=== PATIENT | male | born 1990 | race Caucasian/White ===

== ENCOUNTER 2021-07-03 17:55 | Inpatient (IN) | payer OTHER, BC ==
[~2021-07-03] VITALS: Ht 177.8 cm; Wt 57.7 kg
[~2021-07-03 17:55] MED LIST: ASACOL HD800 MG PO; AUGMENTIN 875875 MG OR; BELLADONNA ALK/1 TA1 PO; BENTYL20 MG PO; BUSPAR PO; CANASA1000 MG RC; CANASA1000 MG RE; CELEXA 20 MG TA20 M1; CELEXA 20 MG TA20 M1 PO; COLOCORT100 MG/60; COUMADIN 2 MG TA2 M1; COUMADIN 3 MG TA3 MG PO; COUMADIN 4 MG TA4 M1 PO; COUMADIN 5 MG TA5 M1 PO; DEPAKOTE ER500 MG; DIAZEPAM 5 MG5 M1; DIAZEPAM 5 MG5 M1 PO; DILAUDID 4 MG TA4 M1 PO; DILAUDID2 M1 PO; DOXEPIN 10 MG C10 MG PO; DOXEPIN 25 MG C25 M1 PO; FENTANYL PA50 MCG/HR TP; FLAGYL PO; HYOSCYAMINE PO; IMURAN 50MG TAB50 M1 PO; IRON325 PO; LEVSIN PO; MS CONTIN15 MG PO; MS CONTIN30 MG PO; NICOTINE TRANSD14 M1 TD; NICOTINE TRANSD21 M1; NICOTINE TRANSD21 M1 TD; OXYIR5 MG PO; PERCOCET 10-651 EACH PO; PHENERGAN 25 MG25 M1 PO; PHENERGAN 25 MG25 MG PO; PREVACID 30MG C30 M1 PO; PROCTOFOAM-HC F10 GM RC; PROMETHAZINE PO; PROTONIX40 M2 PO; REMICADE 1100 MG/VIA; VANCOMYCIN; XANAX XR1 MG PO; [UNRECOGNIZED DRUG - OTHER] PO
[2021-07-03 18:03] VITALS: BP 129/84
[2021-07-03] MEDS ORDERED: SUBOXONE 8 MG-1 EAC3 SUBLING (18:08)
[2021-07-03 18:59] LABS: ABSOLUTE NEUTROPHILS 6.1 thou/uL (1.4-8.2); BASOPHILS 0.4 % (0.0-2.0); EOSINOPHILS 1.9 % (0.0-3.0); HEMATOCRIT 45.1 % (42.0-52.0); HEMOGLOBIN 15.3 gm/dL (14.0-18.0); MCV 91.3 fL (80.0-100.0); MONOCYTES 4.8 % (1.0-8.0); PLATELET COUNT 233 thou/uL (150-400); POLYS 73.9 % (36.0-66.0); RBC 4.94 mil/uL (4.50-6.00); RDW 13.9 % (10.5-14.5); WBC 8.3 thou/uL (4.0-11.0)
[2021-07-03 19:07] LABS: CALCIUM 9.8 mg/dL (8.5-10.1); CREATININE 1.1 mg/dL (0.7-1.3)
[2021-07-03 19:22] LABS: ALBUMIN 4.5 g/dL (3.4-5.0); TOTAL BILIRUBIN 0.4 mg/dL (0.2-1.0); TOTAL PROTEIN 8.3 g/dL (6.4-8.2)
[2021-07-04 00:59] VITALS: BP 107/62
[2021-07-04 01:40] VITALS: BP 106/67
[2021-07-04] MEDS ORDERED: ZOFRAN ODT4 MG PO (01:40)
[2021-07-04] MEDS ORDERED: PROTONIX40 M2 PO (01:41)
[2021-07-04] MEDS ORDERED: NEURONTIN 400M400 M2 PO (01:41)
[2021-07-04] MEDS ORDERED: LIDOCAINE HCL1 EACH TRANSDERM (01:42)
[2021-07-04] MEDS ORDERED: SEROQUEL 100 M100 M1 PO (01:43)
[2021-07-04] MEDS ORDERED: GAS-X62.5 MG PO (01:43)
[2021-07-04] MEDS ORDERED: DICYCLOMINE HCL20 MG PO (01:44)
[2021-07-04] MEDS ORDERED: ZANAFLEX2 M1 PO (01:44)
[2021-07-04] MEDS ORDERED: DILAUDID 4 MG TA4 M1 PO (01:46)
[2021-07-04] MEDS ORDERED: BENADRYL25 MG PO (01:56)
[2021-07-04] MEDS ORDERED: VITAMIN D21250 MCG PO (02:01)
[2021-07-04] MEDS ORDERED: CARAFATE1 GM PO (02:01)
[2021-07-04 07:29] VITALS: BP 94/67
[2021-07-04 08:23] VITALS: BP 112/80
[2021-07-04 09:32] LABS: CALCIUM 8.6 mg/dL (8.5-10.1); POTASSIUM 4.2 mmol/L (3.5-5.1)
[2021-07-04] MEDS ORDERED: QUETIAPINE FUMA25 MG PO (11:35)
[2021-07-04] MEDS ORDERED: HYDROXYZINE HCL25 M2 PO (11:36)
[2021-07-04] MEDS ORDERED: IBU600 MG PO (11:37)
--- NOTE | 2021-07-04 16:08 | NUR ---
ASSUMED CARE OF PT XFER FROM ER AT 0805. PT C/O SEVERE ABD PAIN AND CRAMPING. PT HAS CHOLOSTOMY AND HAS HX OF CHRONIC UC. PT HAS BEEN IN PAIN THROUGHOUT THE MORNING AND HAS HAD NEW MEDS ADDED AND IS NOW FEELING BETTER. ASSESSMENTS NOTE IN CHART AND OTHERWISE UNREMARKABLE. MAINTAINING WARM PACKS AND POSITIONING TO RELIEVE PN. IV IN LT FA WITH NS AT 126ML/HR. PT IS AMBULATORY WITH SB ASST. MEDS AND TX GIVEN NEEDED AND SCHEDULED. CALL LIGHT AND OTHER NEEDS WITHIN REACH. WILL MONITOR AND NOTE ANY CHANGES.
[2021-07-04 17:15] VITALS: BP 119/88
[2021-07-04 19:55] VITALS: BP 188/82
--- NOTE | 2021-07-05 02:57 | NUR ---
ASSUMED PT CARE AT 1900. PT IS ALERT AND ORIENTED X4. PT C/O ITCHING AND WAS NOT SURE WHAT TRIGGERED IT.PT TAKES BENADRYL AT HOME FOR THAT. 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 PT C/O PAIN,N/V THROUGHOUT THE SHIFT WHICH MANAGED BY PRN MEDS. VS ARE WITHIN NORMAL RANGE AND MEDS WERE GIVEN PER EMAR ORDERS. PT DID NOT VERBALIZE ANY OTHER CONCERNS. FALL PRECAUTIONS IN PLACE WITH CALL LIGHT WITHIN REACH. WILL CONTINUE TO MONITOR.
[2021-07-05 05:16] VITALS: BP 109/77
[2021-07-05 07:38] VITALS: BP 121/85
--- NOTE | 2021-07-05 09:47 | NUR ---
ASSESSMENT: CM REVIEWED CHART AND MET WITH PATIENT. PT IS ALERT AND ORIENTED X4. PT WAS ADMITTED WITH ABDOMINAL PAIN AND HAS HX OF CROHNS S/P COLOSTOMY AND ETOH ABUSE. PT REPORTS THAT HE LIVES WITH A FAMILY FRIEND YUNG AND REPORTS IT IS A SAFE ENVIRONMENT THAT IS GOOD FOR HIM NOONE THERE DRINKS. PT REPORTS HE IS NORMALLY INDEPENDENT WITH ADLS AND AMBULATION BUT DOES USE A CANE AT TIMES DUE TO A PAST LEG SURGERY. PT REPORTS THAT HE HAD HH IN THE PAST BUT UNSURE THE AGENCY. CM OFFERED PATIENT AA INFORMATION BUT HE STATES HE ALREADY HAS ALL OF THAT INFO AND REPORTS BEING A PHP PATIENT AT [facility]. CM NOTIFIED PHP AT [facility] THAT PATIENT WAS HOSPITALIZED AND SPOKE WITH YVONNE IN THE OUTPATIENT OFFICE. PT IS CURRENTLY ON IV FLUIDS/IV PHENERGAN AND GI IS CONSULTED. CM WILL CONTINUE TO FOLLOW TO ASSIST NEEDED.
--- NOTE | 2021-07-05 09:50 | NUR ---
OSTOMY CARE; AWAKE, ALERT, COOPERATIVE, SISTER AT , STATES HE CHANGED HIS POUCH 07/03, DOES NOT WANT TO REMOVE NOW FOR THIS [facility] NURSE TO ASSESS PERISTOMAL SKIN, STATES HE FEELS BOWEL WAS PERHAPS KINKED? BUT BETTER NOW, ABLE TO VISUALIZE STOMA, PINK VIABLE, LIQ BROWN STOOL NOTED, BROUGHT OWN SUPPLIES TO HOSP, WILL EVAL PERISTOMAL SKIN NEXT POUCH CHANGE
[2021-07-05 11:42] VITALS: BP 114/79
[2021-07-05 13:14] VITALS: BP 114/79
--- NOTE | 2021-07-05 13:34 | NUR ---
Pt AXOX4. IV in Left FA on RA lungs clear. Heating pad and meds to relieve pain. Bed in low postion to prevent falls. DCed IV for discharge home.
[2021-07-05 13:37] VITALS: BP 114/79
--- NOTE | 2021-07-05 15:14 | EKG ---
[address] [address] ELECTROCARDIOGRAM REPORT Name: ENMA GLAINDO Room #: 433- DIS IN M.R.#: [id number] Admission: 07/04/21 Attend Phys: Ale Tobias MD Discharge: 07/05/21 Date of : 88 Report #: [id number] 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: : 1990 Requested By: Ale Tobias Order Number: [id number] MD: Alex Moran Measurements Intervals [place] Rate: 46 P: 47 DE: 134 QRS: 87 QRSD: 112 T: 83 QT: 443 QTc: 388 Interpretive Statements Sinus bradycardia Borderline intraventricular conduction delay Nonspecific T abnrm, anterolateral leads ST elev, probable normal early repol pattern Compared to ECG 02/26/2011 10:20:34 ST (T wave) deviation now present Sinus arrhythmia no longer present Early repolarization no longer present Electronically Signed On 07-05-2021 15:14:12 CDT by Alex Moran [email or web address] <ELECTRONICALLY SIGNED> By: Alex Moran MD, FACC 07/05/21 1514 07 07 Alex Moran MD, [facility] /EPI
== END 2021-07-05 14:54 | disposition home or self-care (01) | DRG 387 ==
LOC: ER 17:55 → 4S 07-04 00:30 → EROBS 07-04 00:30 → 4S 07-04 07:30
PROVIDERS: Emergency Medicine; Nurse Practitioner Family; ADMIT Internal Medicine; ATTEND Internal Medicine
DX: K50.90 Crohn's disease, unspecified, without complications (principal); Z20.822 Contact with and (suspected) exposure to COVID-19; G40.909 Epilepsy, unspecified, not intractable, without status epilepticus; M06.9 Rheumatoid arthritis, unspecified; F41.9 Anxiety disorder, unspecified; F17.210 Nicotine dependence, cigarettes, uncomplicated; K59.00 Constipation, unspecified; F10.10 Alcohol abuse, uncomplicated; K21.9 Gastro-esophageal reflux disease without esophagitis; M81.0 Age-related osteoporosis without current pathological fracture; K28.9 Gastrojejunal ulcer, unspecified as acute or chronic, without hemorrhage or perforation; R10.9 Unspecified abdominal pain; G89.29 Other chronic pain; Z93.3 Colostomy status; Z88.2 Allergy status to sulfonamides; Z88.8 Allergy status to other drugs, medicaments and biological substances; Z88.6 Allergy status to analgesic agent; Z88.1 Allergy status to other antibiotic agents; Z91.041 Radiographic dye allergy status; Z71.6 Tobacco abuse counseling
CPT/HCPCS: 10195